=== PATIENT | female | born 1980 | race Caucasian/White ===

== ENCOUNTER → 2018-09-20 | Outpatient (CLI) | payer OTHER ==
[2018-09-20 16:51] LABS: Basophils % (A) 0 %; Eosinophils # (A) 0.2 k/uL (0-0.7); Eosinophils % (A) 2 %; HCT 38.7 % (34.0-46.0); HGB 12.3 gm/dL (11.4-16.0); Lymphocytes # (A) 2.9 k/uL (1.0-4.8); Lymphocytes % (A) 37 %; MCH 30.8 pg (25.0-35.0); MCHC 31.8 g/dL (31.0-37.0); MCV 96.7 fL (80.0-100.0); Mean Platelet Volume 6.8; Monocytes # (A) 0.3 k/uL (0-1.0); Monocytes % (A) 4 %; Neutrophils # (A) 4.3 k/uL (1.3-7.7); Neutrophils % (A) 55 %; Platelet Count 299 k/uL (150-450); RDW 12.5 % (11.5-15.5); WBC 7.8 k/uL (3.8-10.6)
[2018-09-20 18:47] LABS: Erythrocyte Sedimentation Rate 4 mm/hr (0-20)
[2018-09-21 04:31] LABS: Thyroid Peroxidase Antibodies 35.7 U/mL (0.0-60.0)
[2018-09-21 04:34] LABS: DHEA Sulfate 98.6 ug/dL (26.0-430.0)
[2018-09-21 05:28] LABS: T4, Free (Free Thyroxine) 1.1 ng/dL (0.80-1.80)
[2018-09-21 09:30] LABS: ACTH <5.00 pg/mL (0.00-45.99)
[2018-09-21 09:44] LABS: C Reactive Protein 0.5 mg/dL (0.0-0.8); Calcium 9.2 mg/dL (8.7-10.3); Magnesium 1.8 mg/dL (1.5-2.4); Potassium 4.2 mmol/L (3.5-5.5)
== END | disposition home or self-care (01) ==
LOC: LABWHC1 16:07
PROVIDERS: ATTEND Internal Medicine Clinical Cardiac Electrophysiology
DX: E78.5 Hyperlipidemia, unspecified (principal); R53.83 Other fatigue; R42 Dizziness and giddiness; R61 Generalized hyperhidrosis; Z45.09 Encounter for adjustment and management of other cardiac device
CPT/HCPCS: 36415; 80048; 82024; 82088; 82533; 82627; 83735; 84439; 84443; 84450; 84460; 85025; 85652; 86038; 86140; 86308; 86376

== ENCOUNTER → 2019-03-30 | Outpatient (CLI) | payer OTHER ==
--- NOTE | 2019-03-30 15:55 | XR ---
EXAMINATION TYPE: XR chest 2V DATE OF EXAM: 03/30/2019 COMPARISON: NONE TECHNIQUE: PA and lateral views submitted. HISTORY: Cough FINDINGS: The lungs are clear and there is no pneumothorax, pleural effusion, or focal pneumonia. 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 No overt failure. IMPRESSION: 1. No acute process.
== END | disposition home or self-care (01) ==
LOC: RADXRMAIN 15:36
PROVIDERS: ATTEND Otolaryngology
DX: R05 Cough (principal); R06.2 Wheezing
CPT/HCPCS: 71046

== ENCOUNTER → 2019-12-20 | Outpatient (CLI) | payer OTHER ==
[2019-12-21 01:57] LABS: Anion Gap 8.8 mmol/L (4.00-12.00); Calcium 8.7 mg/dL (8.7-10.3); Carbon Dioxide 25.2 mmol/L (21.6-31.8); Potassium 4.2 mmol/L (3.5-5.5)
== END | disposition home or self-care (01) ==
LOC: LABWHC1 17:27
PROVIDERS: ATTEND Nurse Practitioner Family
DX: R53.83 Other fatigue (principal); R25.2 Cramp and spasm
CPT/HCPCS: 36415; 80051; 82306; 82310; 83970